=== PATIENT | male | born 1945 | race Caucasian/White ===

== ENCOUNTER 2017-12-31 20:07 | Inpatient (IN) | payer MEDICARE ==
[~2017-12-31] VITALS: Ht 170.2 cm; Wt 55.5 kg
[2017-12-31 20:40] VITALS: BP 156/76
[2017-12-31] MEDS ORDERED: Morphine Sulfate 4mg/ml Inj (IV/IM USE ONLY) IVP ONE (22:30)
[2017-12-31] MEDS ORDERED: KEPPRA500 M4 ORAL (23:22)
--- NOTE | 2017-12-31 23:49 | Emergency Room Report ---
History of Present Illness General Chief Complaint: Multiple Trauma/Fall Source: EMS Present Illness HPI 72-year-old male presents to ED for evaluation. Brought in by EMS status post fall from bed tonight. called 911. Patient points to his leg. Has dementia and history of brain cancer. Unable to characterize the pain. Patient appears confused. Unable to provide any additional history at this time. No other aggravating relieving factors. No other associated symptoms Allergies: Coded Allergies: No Known Allergies (Unverified , 12/31/17) Patient History Past Medical History: seizures, other - brain cancer Past Surgical History: none Pertinent Family History: none Social History: Denies: smoking, alcohol use, drug use Immunizations: UTD Reviewed Nursing Documentation: PMH: Agreed; PSxH: Agreed Nursing Documentation-PMH Hx Seizures: Yes Review of Systems All Other Systems: limited Physical Exam Vital Signs Date Time Temp Pulse Resp B/P (MAP) Pulse Ox O2 Delivery O2 Flow Rate FiO2 12/31/17 20:01 98.5 74 18 156/76 96 Room Air 98.4 Sp02 EP Interpretation: reviewed, normal General Appearance: cachetic, thin, other - dementia Head: normocephalic 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; left eye normal inspection, left eye PERRL, left eye EOMI ENT: normal ENT inspection Neck: normal inspection Respiratory: chest non-tender, lungs clear, normal breath sounds, speaking full sentences Cardiovascular #1: regular rate, rhythm, no edema Gastrointestinal: normal bowel sounds, non tender, soft, non-distended, no guarding, no rebound Rectal: deferred Genitourinary: no CVA tenderness Musculoskeletal: tender - R hip Neurologic: other - dementia Psychiatric: other - dementia Skin: normal inspection Lymphatic: normal inspection Medical Decision Making Diagnostic Impression: Primary Impression: Fall from bed Qualified Codes: W06.XXXA - Fall from bed, initial encounter Additional Impressions: Fracture of greater trochanter of right femur Qualified Codes: S72.114A - Nondisplaced fracture of greater trochanter of right femur, initial encounter for closed fracture H/O malignant neoplasm of brain ER Course Hospital Course 72 yo M presents to ED with fall from bed. R hip pain. h/o dementia Differential diagnoses include: fracture, dislocation, contusion Clinical course Patient placed on stretcher. After initial history and physical I ordered CT Head and CT pelvis, femur Xray CT head shows history of brain cancer with craniotomy but no acute process, right eye enucleation CT pelvis shows right greater trochanter fracture nondisplaced Labs drawn, IV fluids given Case discussed with Dr. David who agreed to consult on this case. Case discussed with Dr. Saldaña who agreed to accept the patient to his service for further care and support No family came with patient. later called. States that patient has history of brain cancer. Was treated previously at [facility]. States that he is currently taking Keppra 125 twice a day for seizures. States that she is the patient's decision-maker. Given the patient has dementia and is bedbound, she is likely not wanting surgery for the patient. States that she will discuss patient's case with the physician's in the morning i. I feel this is a highly complex case requiring extensive working including EKG/Rhythm strip, Xray/CT/US, Blood/urine lab work, repeat exams while in ED, and administration of strong opiates/narcotics for pain control, admission to hospital or close patient follow up. Diagnosis - fall from bed, fracture of greater trochanter of R femur, h/o malignant neoplasm of brain Admitted to floor in serious condition CT/MRI/US Diagnostic Results CT/MRI/US Diagnostic Results #1: Imaging Test Ordered: CT Head Impression h/o tumor. s/p left craniotomy. CT/MRI/US Diagnostic Results #2: Imaging Test Ordered: CT Pelvis Impression R nondisplaced greater trochanter fx Last Vital Signs Date Time Temp Pulse Resp B/P (MAP) Pulse Ox O2 Delivery O2 Flow Rate FiO2 12/31/17 22:43 98.4 12/31/17 20:40 18 156/76 96 Room Air 12/31/17 20:01 74 Status: improved Disposition: ADMITTED INPATIENT Condition: Serious Referrals: NOT CHOSEN IPA/,REFERRING (PCP) Gee Alcantara MD Dec 31, 2017 23:49
[2018-01-01 00:30] VITALS: BP 122/66
[2018-01-01] MEDS ORDERED: Zolpidem 5mg tab ORAL PRN (00:30)
[2018-01-01] MEDS ORDERED: Albuterol/Ipratropium 3ml neb HHN PRN (00:30)
[2018-01-01] MEDS ORDERED: Milk of Magnesia 30ml Ud ORAL PRN (00:30)
[2018-01-01] MEDS: D5 1/2NS 1,000 ML IV SCH ×2 (02:08→16:19)
[2018-01-01 04:00] VITALS: BP 125/63
[2018-01-01 07:24] LABS: BASOPHILS % (AUTO) 0.1 % (0.0-2.0); EOSINOPHILS % (AUTO) 0.1 % (0.0-3.0); HEMATOCRIT 41.5 % (42.0-52.0); HEMOGLOBIN 14.6 G/DL (14.2-18.0); LYMPHOCYTES % (AUTO) 17.9 % (20.0-45.0); MEAN CORPUSCULAR VOLUME 92 FL (80-99); MONOCYTES % (AUTO) 6.5 % (1.0-10.0); NEUTROPHILS % (AUTO) 75.3 % (45.0-75.0); PLATELET COUNT 137 K/UL (150-450); RED CELL DISTRIBUTION WIDTH 11.9 % (11.6-14.8); WHITE BLOOD COUNT 11.1 K/UL (4.8-10.8)
[2018-01-01 07:58] LABS: ALANINE AMINOTRANSFERASE 13 U/L (12-78); ALBUMIN 3.4 G/DL (3.4-5.0); ALBUMIN/GLOBULIN RATIO 1.2 (1.0-2.7); ALKALINE PHOSPHATASE 72 U/L (46-116); ANION GAP 10 mmol/L (5-15); ASPARTATE AMINO TRANSFERASE 9 U/L (15-37); BILIRUBIN,TOTAL 0.6 MG/DL (0.2-1.0); BLOOD UREA NITROGEN 13 mg/dL (7-18); CALCIUM 9.2 MG/DL (8.5-10.1); CARBON DIOXIDE 27 MMOL/L (21-32); CHLORIDE 104 MMOL/L (98-107); CREATININE 0.8 MG/DL (0.55-1.30); POTASSIUM 4.4 MMOL/L (3.5-5.1); SODIUM 141 MMOL/L (136-145)
[2018-01-01 08:00] VITALS: BP 119/61
[2018-01-01] MEDS ORDERED: Ketorolac 30mg Inj IM PRN (08:00)
[2018-01-01] MEDS: Docusate 100mg cap ORAL SCH ×2 (08:58→21:11)
--- NOTE | 2018-01-01 10:16 | Diagnostic Imaging Report ---
Indication: Headache. Head trauma Technique: Contiguous 5 mm thick transaxial imaging of the head obtained in a Siemens Sensation [address] scanner. Soft tissue and bone windows generated. Automatic Exposure Control was utilized. Total Dose length Product (DLP): 1439.[address] Dose Index Volume (CTDIvol): 70.38 mGy Comparison: none Findings: There is extensive low-attenuation of the periventricular and subcortical white matter bilaterally much worse within the left cerebrum. Patient has had previous left craniotomy, the reason for which is not known. There is distortion of the left lateral ventricle with the bulbous prominent appearing corpus callosum on the left side associated with slight the effacement of the superior margin of the left lateral ventricle probably best appreciated on coronal reconstruction. In general the sulci appear less prominent on the left than on the right. There is no pertinent history that is forthcoming. The findings based on the images provided without reference studies suggests the possibility of underlying tumor which may be residual or recurrent tumor. The low attenuation of white matter may be on the basis of vasogenic edema which is not excluded. Differential considerations include cerebritis and infection or previous XRT. Further elucidation of these findings with MRI with and without gadolinium is recommended as well as obtaining old records, previous examinations and workups that have undoubtedly been performed elsewhere. There is no acute hemorrhage identified. The basal cisterns remain normal. Generalized mild ventriculomegaly is present likely associated with atrophy. There is a displaced right ocular globe towards the medial aspect of the orbit. IMPRESSION: Diffuse abnormal low-attenuation involving cerebral white matter bilaterally, extensive in degree, acuity indeterminate. Possibility of vasogenic edema is not excluded and could be on the basis of recurrent or residual tumor or cerebritis, among other possibilities. Would also consider the possibility of previous XRT to the brain. Left craniotomy noted. Further evaluation with MRI with and without gadolinium is recommended as well as obtaining previous records, previous examinations for comparison and correlation. The CT scanner at [facility] is accredited by the [employer] and the scans are performed using dose optimization techniques as appropriate to a performed exam including Automatic Exposure control.
--- NOTE | 2018-01-01 10:21 | Diagnostic Imaging Report ---
Indication: Abdominal pain Technique: Continuous helical transaxial imaging of the pelvis was obtained from the iliac crest to the pubic symphysis. Coronal 2-D reformats were also obtained. Study obtained in a Siemens sensation [address] Intravenous non-ionic contrast was administered. Total Dose length Product (DLP): 1439.[address] Dose Index Volume (CTDIvol): 70.38 mGy Comparison: None Findings: There is evidence of an acute nondisplaced fracture involving the right greater trochanter. There is no evidence of fracture extending into the intertrochanteric region or the femoral neck within the joint capsule. The bones are osteopenic. No other fractures are identified. There is partial fusion of the sacroiliac joints and moderate degenerative changes of the visualized lower lumbar spine. Aortoiliac calcifications are moderate. There is moderate distention of the rectum due to feces. The rectal wall is also prominent and thickened. Stones are noted layering in the dependent portion of the urinary bladder lumen. There is a small right inguinal hernia containing fluid and fat. IMPRESSION: Acute nondisplaced fracture of the right greater trochanter. Fecal impaction with rectal wall thickening suggestive of proctitis. Bladder stones. Atherosclerotic disease. Osteoporosis, degenerative changes of the lower lumbar spine and arthrosis of both sacroiliac joints. The CT scanner at [facility] is accredited by the [employer] and the scans are performed using dose optimization techniques as appropriate to a performed exam including Automatic Exposure control.
[2018-01-01] MEDS: Enoxaparin 40mg Inj SUBQ SCH (10:23)
--- NOTE | 2018-01-01 11:04 | Diagnostic Imaging Report ---
Indication: Pain Thigh pain Findings: 2 views of the right femur were obtained. No definite acute fracture identified. Bones are moderately osteopenic. Alignment is normal. IMPRESSION: No acute fracture appreciated
--- NOTE | 2018-01-01 11:05 | Diagnostic Imaging Report ---
Indication: Pain Knee pain/trauma 3 views of the right knee were obtained. Findings: No acute fracture, malalignment, or joint effusion are identified. Joint space is relatively well-maintained. Bones show moderate to severe osteopenia. Impression: Negative for acute findings.
[2018-01-01 12:00] VITALS: BP 124/60
--- NOTE | 2018-01-01 14:39 | History & Physical ---
History and Physical History & Physicial General Chief Complaint: Multiple Trauma/Fall Source: EMS Present Illness HPI 72-year-old male presents to ED for evaluation. Brought in by EMS status post fall from bed tonight. called 911. Patient points to his leg. Has dementia and history of brain cancer. Unable to characterize the pain. Patient appears confused. Unable to provide any additional history at this time. No other aggravating relieving factors. No other associated symptoms Allergies: Coded Allergies: No Known Allergies (Unverified , 12/31/17) Patient History Past Medical History: seizures, other - brain cancer Past Surgical History: none Pertinent Family History: none Social History: Denies: smoking, alcohol use, drug use Immunizations: UTD Reviewed Nursing Documentation: PMH: Agreed; PSxH: Agreed Nursing Documentation-PMH Hx Seizures: Yes Review of Systems All Other Systems: limited Physical Exam Vital Signs Date Time Temp Pulse Resp B/P (MAP) Pulse Ox O2 Delivery O2 Flow Rate FiO2 12/31/17 20:01 98.5 74 18 156/76 96 Room Air 98.4 Sp02 EP Interpretation: reviewed, normal General Appearance: cachetic, thin, other - dementia Head: normocephalic 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; left eye normal inspection, left eye PERRL, left eye EOMI ENT: normal ENT inspection Neck: normal inspection Respiratory: chest non-tender, lungs clear, normal breath sounds, speaking full sentences Cardiovascular #1: regular rate, rhythm, no edema Gastrointestinal: normal bowel sounds, non tender, soft, non-distended, no guarding, no rebound Rectal: deferred Genitourinary: no CVA tenderness Musculoskeletal: tender - R hip Neurologic: other - dementia Psychiatric: other - dementia Skin: normal inspection Lymphatic: normal inspection Medical Decision Making Diagnostic Impression: Primary Impression: Fall from bed Qualified Codes: W06.XXXA - Fall from bed, initial encounter Additional Impressions: Fracture of greater trochanter of right femur Qualified Codes: S72.114A - Nondisplaced fracture of greater trochanter of right femur, initial encounter for closed fracture H/O malignant neoplasm of brain A/P; 1- Right sided Troch fx 2- Declined cognition in context of Brain tumor and prior surgery 3- Decision making: reportedly be Plan: Dr David, already notified SW- to find the next keen's contact information Maribell Saldaña MD Jan 01, 2018 14:39
--- NOTE | 2018-01-01 14:43 | General Progress Note ---
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 External Rotation of right hip Neurologic: other - dementia Psychiatric: other - dementia Skin: normal inspection Lymphatic: normal inspection Medical Decision Making Diagnostic Impression: Primary Impression: Fall from bed Qualified Codes: W06.XXXA - Fall from bed, initial encounter Additional Impressions: Fracture of greater trochanter of right femur Qualified Codes: S72.114A - Nondisplaced fracture of greater trochanter of right femur, initial encounter for closed fracture H/O malignant neoplasm of brain A/P; 1- Right sided Troch fx 2- Declined cognition in context of Brain tumor and prior surgery 3- Decision making: reportedly be Plan: Dr David, already notified SW- to find the next keen's contact information Subjective Allergies: Coded Allergies: No Known Allergies (Unverified , 12/31/17) Objective Last 24 Hour Vital Signs Date Time Temp Pulse Resp B/P (MAP) Pulse Ox O2 Delivery O2 Flow Rate FiO2 01/01/18 12:00 98.4 66 20 124/60 (81) 96 98.4 01/01/18 09:00 Room Air 01/01/18 08:00 97.9 70 20 119/61 (80) 97 97.9 01/01/18 04:00 97.5 68 18 125/63 (83) 97 97.5 01/01/18 01:12 Room Air 01/01/18 00:30 97.8 77 19 122/66 (84) 100 97.8 01/01/18 00:07 98.4 83 18 156/76 96 Room Air 98.4 12/31/17 22:43 98.4 12/31/17 20:40 98.4 18 156/76 96 Room Air 98.4 12/31/17 20:01 98.5 74 18 156/76 96 Room Air 98.4 Intake and Output 12/31/17 01/01/18 19:00 07:00 Intake Total 400 ml Balance 400 ml Intake Oral 100 ml IV Total 300 ml # Voids 1 Laboratory Tests 01/01/18 06:15: White Blood Count 11.1H, Red Blood Count 4.50L, Hemoglobin 14.6, Hematocrit 41.5L, Mean Corpuscular Volume 92, Mean Corpuscular Hemoglobin 32.4H, Mean Corpuscular Hemoglobin Concent 35.1, Red Cell Distribution Width 11.9, Platelet Count 137L, Mean Platelet Volume 5.9L, Neutrophils (%) (Auto) 75.3H, Lymphocytes (%) (Auto) 17.9L, Monocytes (%) (Auto) 6.5, Eosinophils (%) (Auto) 0.1, Basophils (%) (Auto) 0.1, Prothrombin Time 11.0, Prothromb Time International Ratio 1.0, Activated Partial Thromboplast Time 29, Sodium Level 141, Potassium Level 4.4, Chloride Level 104, Carbon Dioxide Level 27, Anion Gap 10, Blood Urea Nitrogen 13, Creatinine 0.8, Estimat Glomerular Filtration Rate , Glucose Level 116H, Calcium Level 9.2, Total Bilirubin 0.6, Aspartate Amino Transf (AST/SGOT) 9L, Alanine Aminotransferase (ALT/SGPT) 13, Alkaline Phosphatase 72, Total Protein 6.2L, Albumin 3.4, Globulin 2.8, Albumin/Globulin Ratio 1.2, Thyroid Stimulating Hormone (TSH) 1.529, Levetiracetam (Keppra) Level [Pending] Height (Feet): 5 Height (Inches): 7.00 Weight (Pounds): 117 Maribell Saldaña MD Jan 01, 2018 14:43
[2018-01-01 16:00] VITALS: BP 128/63
[2018-01-01 20:00] VITALS: BP 101/82
--- NOTE | 2018-01-01 20:15 | Consultation ---
DATE OF CONSULTATION: 01/01/2018 ORTHOPEDIC CONSULTATION CONSULTING PHYSICIAN: Georgi David M.D. REQUESTING PHYSICIAN: Maribell Saldaña M.D. DIAGNOSIS: Right greater trochanteric nondisplaced proximal femur fracture. HISTORY OF PRESENT ILLNESS: The patient is a 72-year-old gentleman, who was brought to the emergency department after falling from bed. Family member called 911. He has a history of dementia and brain cancer. He has diffuse complaints of pain about the right hip, though he has some difficulty verbalizing. Workup in the emergency department revealed nondisplaced right greater trochanteric fracture with no extension into the intertrochanteric region. There is no evidence of femoral neck fracture. PAST MEDICAL HISTORY: Significant for seizures, brain cancer, and has no known drug allergies. He has , who is his medical proxy. PHYSICAL EXAMINATION: He is well-appearing and comfortable in bed. There is a bandage over the right eye. He has some aphasia and difficulty communicating, although simple questions he seems able to answer. With log rolling of the right lower extremity, he has complaints of diffuse right groin pain. He is not able to follow instructions easily and not able to do a straight leg raise. Distal neurovascular examination is grossly intact. The leg is somewhat cachectic in appearance. RADIOGRAPHS: AP radiographs of pelvis and right hip along with CT scan reveal nondisplaced greater trochanteric hip fracture with no extension into the joint or into the intertrochanteric region. IMPRESSION AND PLAN: The patient sustained a greater trochanteric hip fracture with no displacement. No operative intervention was recommended. Abduction precautions are his only limitation. He may be weightbearing as tolerated and work with therapy as he is able to do so. He is welcome to follow up as an outpatient. Again, no surgical intervention is warranted at this time. Thank you for the opportunity to consult. Georgi David M.D. DR: BRAD JOB#: [id number] CC:
[2018-01-02] VITALS: BP 158/75
[2018-01-02 01:34] LABS: APPEARANCE,URINE CLOUDY; BILIRUBIN, URINE NEGATIVE (NEGATIVE); COLOR,URINE PALE YELLOW; GLUCOSE, URINE (UA) NEGATIVE (NEGATIVE); KETONES,URINE NEGATIVE (NEGATIVE); LEUKOCYTE ESTERASE ,URINE 3+ (NEGATIVE); NITRITE,URINE NEGATIVE (NEGATIVE); PH,URINE 6.5 (4.5-8.0); PROTEIN,URINE 1+ (NEGATIVE); UROBILINOGEN,URINE NORMAL MG/DL (0.0-1.0)
[2018-01-02 04:00] VITALS: BP 144/74
[2018-01-02] MEDS: D5 1/2NS 1,000 ML IV SCH ×2 (05:28→18:18)
[2018-01-02 06:39] LABS: BASOPHILS % (AUTO) 0.3 % (0.0-2.0); EOSINOPHILS % (AUTO) 0.9 % (0.0-3.0); HEMATOCRIT 41.1 % (42.0-52.0); HEMOGLOBIN 14.2 G/DL (14.2-18.0); LYMPHOCYTES % (AUTO) 14.8 % (20.0-45.0); MEAN CORPUSCULAR VOLUME 93 FL (80-99); MONOCYTES % (AUTO) 7.2 % (1.0-10.0); NEUTROPHILS % (AUTO) 76.8 % (45.0-75.0); PLATELET COUNT 139 K/UL (150-450); RED BLOOD COUNT 4.43 M/UL (4.70-6.10); RED CELL DISTRIBUTION WIDTH 12.1 % (11.6-14.8); WHITE BLOOD COUNT 9.3 K/UL (4.8-10.8)
[2018-01-02 07:18] LABS: ALANINE AMINOTRANSFERASE 17 U/L (12-78); ALBUMIN 3.3 G/DL (3.4-5.0); ALKALINE PHOSPHATASE 71 U/L (46-116); ANION GAP 9 mmol/L (5-15); ASPARTATE AMINO TRANSFERASE 12 U/L (15-37); BILIRUBIN,TOTAL 0.8 MG/DL (0.2-1.0); BLOOD UREA NITROGEN 12 mg/dL (7-18); CALCIUM 9.5 MG/DL (8.5-10.1); CARBON DIOXIDE 30 MMOL/L (21-32); CHLORIDE 103 MMOL/L (98-107); CHOLESTEROL 128 MG/DL (< 200); CREATININE 0.8 MG/DL (0.55-1.30); HDL CHOLESTEROL 55 MG/DL (40-60); SODIUM 142 MMOL/L (136-145); TRIGLYCERIDES 114 MG/DL (30-150)
[2018-01-02 08:00] VITALS: BP 135/56
[2018-01-02] MEDS: Docusate 100mg cap ORAL SCH ×2 (09:12→20:44)
[2018-01-02] MEDS: Enoxaparin 40mg Inj SUBQ SCH (09:14)
[2018-01-02] MEDS ORDERED: D5 1/2NS 1000ml IV ONE (09:28)
[2018-01-02 12:00] VITALS: BP 125/59
--- NOTE | 2018-01-02 12:22 | General Progress Note ---
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 External Rotation of right hip Neurologic: other - dementia Psychiatric: other - dementia Skin: normal inspection Lymphatic: normal inspection Medical Decision Making Diagnostic Impression: Primary Impression: Fall from bed Qualified Codes: W06.XXXA - Fall from bed, initial encounter Additional Impressions: Fracture of greater trochanter of right femur Qualified Codes: S72.114A - Nondisplaced fracture of greater trochanter of right femur, initial encounter for closed fracture H/O malignant neoplasm of brain A/P; 1- Right sided Troch fx 2- Declined cognition in context of Brain tumor and prior surgery 3- Decision making: reportedly by Plan: Dr Frankie carrizales reviewed current conservative management and symptomatic treatment SW- to find the next keen's contact information Subjective Allergies: Coded Allergies: No Known Allergies (Unverified , 12/31/17) Objective Last 24 Hour Vital Signs Date Time Temp Pulse Resp B/P (MAP) Pulse Ox O2 Delivery O2 Flow Rate FiO2 01/02/18 09:00 Room Air 01/02/18 08:00 98.7 84 20 135/56 (82) 99 98.7 01/02/18 04:00 97.7 78 18 144/74 (97) 98 97.7 01/02/18 00:00 98.0 91 18 158/75 (102) 97 98.0 01/01/18 21:00 Room Air 01/01/18 20:00 97.9 93 18 101/82 (88) 97 97.9 01/01/18 16:00 101.4 104 19 128/63 (84) 94 101.4 Intake and Output 01/01/18 01/02/18 19:00 07:00 Intake Total 1260 ml 945 ml Output Total 350 ml Balance 1260 ml 595 ml Intake Oral 360 ml 120 ml IV Total 900 ml 825 ml Output Urine Total 350 ml # Voids 2 Laboratory Tests 01/02/18 01:00: Urine Color Pale yellow, Urine Appearance Cloudy, Urine pH 6.5, Urine Specific [place] 1.015, Urine Protein 1+H, Urine Glucose (UA) Negative, Urine Ketones Negative, Urine Blood 2+H, Urine Nitrite Negative, Urine Bilirubin Negative, Urine Urobilinogen Normal, Urine Leukocyte Esterase 3+H, Urine RBC 5-10H, Urine WBC TntcH, Urine Squamous Epithelial Cells None, Urine Bacteria ManyH 01/02/18 05:15: White Blood Count 9.3, Red Blood Count 4.43L, Hemoglobin 14.2, Hematocrit 41.1L , Mean Corpuscular Volume 93, Mean Corpuscular Hemoglobin 32.1H, Mean Corpuscular Hemoglobin Concent 34.6, Red Cell Distribution Width 12.1, Platelet Count 139L, Mean Platelet Volume 6.3L, Neutrophils (%) (Auto) 76.8H, Lymphocytes (%) (Auto) 14.8L, Monocytes (%) (Auto) 7.2, Eosinophils (%) (Auto) 0.9, Basophils (%) (Auto) 0.3, Prothrombin Time 10.8, Prothromb Time International Ratio 1.0, Activated Partial Thromboplast Time 30, Sodium Level 142, Potassium Level 4.0, Chloride Level 103, Carbon Dioxide Level 30, Anion Gap 9, Blood Urea Nitrogen 12, Creatinine 0.8, Estimat Glomerular Filtration Rate , Glucose Level 111H, Hemoglobin A1c 5.5, Calcium Level 9.5, Magnesium Level 1.8, Total Bilirubin 0.8, Aspartate Amino Transf (AST/SGOT) 12L, Alanine Aminotransferase (ALT/SGPT) 17, Alkaline Phosphatase 71, Pro-B-Type Natriuretic Peptide 243H, Total Protein 6.7, Albumin 3.3L, Globulin 3.4, Albumin/Globulin Ratio 1.0, Triglycerides Level 114, Cholesterol Level 128, LDL Cholesterol 47, HDL Cholesterol 55, Cholesterol/HDL Ratio 2.3L Height (Feet): 5 Height (Inches): 7.00 Weight (Pounds): 122 Maribell Saldaña MD Jan 02, 2018 12:22
--- NOTE | 2018-01-02 14:25 | Infectious Diseases Prog Note ---
Assessment/Plan Problems: (1) UTI (urinary tract infection) Assessment & Plan: will start cefepime empirically pending urine culture (2) Sepsis Assessment & Plan: with fever and leukocytosis , will send blood culture and start vancomycin and cefepime empirically (3) Fever Assessment & Plan: source? UTI VS fracture , will send blood culture and start wide spectrum antibiotics pending cultures results (4) Fracture of greater trochanter of right femur Assessment & Plan: continue pain management and conservative treatment as per ortho Subjective Allergies: Coded Allergies: No Known Allergies (Unverified , 12/31/17) Objective Vital Signs Last 24 Hour Vital Signs Date Time Temp Pulse Resp B/P (MAP) Pulse Ox O2 Delivery O2 Flow Rate FiO2 01/02/18 12:00 98.7 70 20 125/59 (81) 99 98.7 01/02/18 09:00 Room Air 01/02/18 08:00 98.7 84 20 135/56 (82) 99 98.7 01/02/18 04:00 97.7 78 18 144/74 (97) 98 97.7 01/02/18 00:00 98.0 91 18 158/75 (102) 97 98.0 01/01/18 21:00 Room Air 01/01/18 20:00 97.9 93 18 101/82 (88) 97 97.9 01/01/18 16:00 101.4 104 19 128/63 (84) 94 101.4 Height (Feet): 5 Height (Inches): 7.00 Weight (Pounds): 122 Laboratory Tests Test 01/02/18 01:00 01/02/18 05:15 Urine Color Pale yellow Urine Appearance Cloudy Urine pH 6.5 (4.5-8.0) Urine Specific [place] 1.015 (1.005-1.035) Urine Protein 1+ (NEGATIVE) H Urine Glucose (UA) Negative (NEGATIVE) Urine Ketones Negative (NEGATIVE) Urine Blood 2+ (NEGATIVE) H Urine Nitrite Negative (NEGATIVE) Urine Bilirubin Negative (NEGATIVE) Urine Urobilinogen Normal MG/DL (0.0-1.0) Urine Leukocyte Esterase 3+ (NEGATIVE) H Urine RBC 5-10 /HPF (0 - 0) H Urine WBC Tntc /HPF (0 - 0) H Urine Squamous Epithelial Cells None /LPF (NONE/OCC) Urine Bacteria Many /HPF (NONE) H White Blood Count 9.3 K/UL (4.8-10.8) Red Blood Count 4.43 M/UL (4.70-6.10) L Hemoglobin 14.2 G/DL (14.2-18.0) Hematocrit 41.1 % (42.0-52.0) L Mean Corpuscular Volume 93 FL (80-99) Mean Corpuscular Hemoglobin 32.1 PG (27.0-31.0) H Mean Corpuscular Hemoglobin Concent 34.6 G/DL (32.0-36.0) Red Cell Distribution Width 12.1 % (11.6-14.8) Platelet Count 139 K/UL (150-450) L Mean Platelet Volume 6.3 FL (6.5-10.1) L Neutrophils (%) (Auto) 76.8 % (45.0-75.0) H Lymphocytes (%) (Auto) 14.8 % (20.0-45.0) L Monocytes (%) (Auto) 7.2 % (1.0-10.0) Eosinophils (%) (Auto) 0.9 % (0.0-3.0) Basophils (%) (Auto) 0.3 % (0.0-2.0) Prothrombin Time 10.8 SEC (9.30-11.50) Prothromb Time International Ratio 1.0 (0.9-1.1) Activated Partial Thromboplast Time 30 SEC (23-33) Sodium Level 142 MMOL/L (136-145) Potassium Level 4.0 MMOL/L (3.5-5.1) Chloride Level 103 MMOL/L (98-107) Carbon Dioxide Level 30 MMOL/L (21-32) Anion Gap 9 mmol/L (5-15) Blood Urea Nitrogen 12 mg/dL (7-18) Creatinine 0.8 MG/DL (0.55-1.30) Estimat Glomerular Filtration Rate mL/min (>60) Glucose Level 111 MG/DL (74-106) H Hemoglobin A1c 5.5 % (4.3-6.0) Calcium Level 9.5 MG/DL (8.5-10.1) Magnesium Level 1.8 MG/DL (1.8-2.4) Total Bilirubin 0.8 MG/DL (0.2-1.0) Aspartate Amino Transf (AST/SGOT) 12 U/L (15-37) L Alanine Aminotransferase (ALT/SGPT) 17 U/L (12-78) Alkaline Phosphatase 71 U/L (46-116) Pro-B-Type Natriuretic Peptide 243 pg/mL (0-125) H Total Protein 6.7 G/DL (6.4-8.2) Albumin 3.3 G/DL (3.4-5.0) L Globulin 3.4 g/dL Albumin/Globulin Ratio 1.0 (1.0-2.7) Triglycerides Level 114 MG/DL (30-150) Cholesterol Level 128 MG/DL (< 200) LDL Cholesterol 47 mg/dL (<100) HDL Cholesterol 55 MG/DL (40-60) Cholesterol/HDL Ratio 2.3 (3.3-4.4) L Current Medications Medications (Trade) Dose Ordered Sig/Trisha Route PRN Reason Start Time Stop Time Status Last Admin Dose Admin Acetaminophen (Tylenol) 650 mg Q4H PRN ORAL Mild Pain (Pain Scale 1-3) 01/01/18 00:30 01/31/18 00:29 Albuterol/ Ipratropium (Albuterol/ Ipratropium) 3 ml [id number] PRN HHN Shortness of Breath 01/01/18 00:30 01/06/18 00:29 Dextrose (Dextrose 50%) 25 ml Q30M PRN IV Hypoglycemia 01/01/18 00:30 01/31/18 00:29 Dextrose (Dextrose 50%) 50 ml Q30M PRN IV Hypoglycemia 01/01/18 00:30 01/31/18 00:29 Dextrose/Sodium Chloride 1,000 ml @ 75 mls/hr [id number] IV 01/01/18 02:00 01/31/18 01:59 01/02/18 05:28 Docusate Sodium (Colace) 100 mg EVERY 12 HOURS ORAL 01/01/18 09:00 01/31/18 08:59 01/02/18 09:12 Enoxaparin Sodium (Lovenox) 40 mg Q24H SUBQ 01/01/18 09:00 01/31/18 08:59 01/02/18 09:14 Ketorolac Tromethamine (Toradol 30mg) 30 mg Q12H PRN IM Moderate Breakthru Pain (5-7) 01/01/18 08:00 01/06/18 07:59 Levetiracetam (Keppra) 500 mg Q12HR ORAL 01/01/18 09:00 01/31/18 08:59 01/02/18 09:12 Magnesium Hydroxide (Mom) 30 ml HSPRN PRN ORAL Constipation 01/01/18 00:30 01/31/18 00:29 Morphine Sulfate (Morphine Sulfate) 4 mg Q4H PRN IVP Severe Pain (Pain Scale 7-10) 01/01/18 08:00 01/08/18 07:59 Ondansetron HCl (Zofran) 4 mg Q6H PRN IVP Nausea & Vomiting 01/01/18 00:30 01/31/18 00:29 Pantoprazole (Protonix) 40 mg DAILY ORAL 01/01/18 09:00 01/31/18 08:59 01/02/18 09:13 Zolpidem Tartrate (Ambien) 5 mg HSPRN PRN ORAL Insomnia 01/01/18 00:30 01/08/18 00:29 Chelsey Drew M.D. Jan 02, 2018 14:25
[2018-01-02] MEDS: Cefepime HCl 2 GM in D5W 55 ML IVPB SCH ×2 (15:24→22:54)
[2018-01-02 16:00] VITALS: BP 130/76
[2018-01-02] MEDS: Vancomycin 1250mg/D5W 250ml IVPB SCH (16:19)
[2018-01-02 20:00] VITALS: BP 119/55
--- NOTE | 2018-01-02 20:15 | Consultation ---
DATE OF CONSULTATION: 01/02/2018 INFECTIOUS DISEASES CONSULTATION CONSULTING PHYSICIAN: Chelsey Drew M.D. REQUESTING PHYSICIAN: Maribell Saldaña M.D. REASON FOR CONSULTATION: Fever, urinary tract infection, possible sepsis. Recommendation for antibiotics treatment. HISTORY OF PRESENT ILLNESS: The patient is a 72-year-old male with past medical history significant for seizure, brain cancer brought into the emergency room at [facility] after he fell from bed. The patient sustained right hip pain with inability to get up or walk. He had extensive workup in the emergency room which revealed nondisplaced right greater trochanteric fracture with no evidence of femoral neck fracture so he was admitted to the hospital for further evaluation and possible surgical repair. The patient was spiking fever last night of 101.4. His urinalysis showed evidence of urinary tract infection. So, Infectious Diseases consultation was requested for antibiotics treatment and further management. As of note, the patient is poor historian, had difficulty verbalizing, could not provide any history at this point. History was mainly obtained from the medical record. REVIEW OF SYSTEMS: Unable to obtain, the patient is poor historian. PAST MEDICAL HISTORY: Significant for seizure disorder and brain cancer. ALLERGIES: He has no known drug allergy. MEDICATIONS: He is on Lovenox, Protonix, Colace, Keppra, morphine, albuterol with ipratropium, Tylenol, milk of magnesium, Zofran, Ambien, and dextrose. FAMILY HISTORY: Unable to obtain. SOCIAL HISTORY: The patient lives at home with family. No recent drugs, tobacco, or alcohol. PHYSICAL EXAMINATION: VITAL SIGN: Temperature now 98.7, pulse 70, respirations 20, blood pressure 125/59, saturation 99% on room air. Temperature yesterday was 101.4. GENERAL: Middle-aged male, lying in bed, and hard of hearing, cachectic, no acute distress. HEENT: Normocephalic and atraumatic. Pupils are not reactive to light due to old injury. Moist oral mucosa. NECK: Supple. No lymphadenopathy. CARDIOVASCULAR: Regular rate and rhythm. No murmur or gallop. LUNGS: Clear bilaterally. No wheezing or rhonchi. Normal breathing sounds. ABDOMEN: Soft, nontender, nondistended. Normal bowel sounds. No hepatosplenomegaly or ascites. EXTREMITIES: No edema or cyanosis. Right hip tenderness with decreased range of motion due to fracture, significant muscle atrophy. LABORATORY AND DIAGNOSTIC DATA: Showed white count of 9.3, hemoglobin of 14.2, platelet count of 139. BUN of 12 and creatinine of 0.8. Urinalysis showed +3 leukocyte esterase, wbc's too numerous to count, and many bacteria in the urine. Imaging, pelvic CT scan showed acute nondisplaced fracture of the right greater trochanter. Fecal impaction with rectal wall thickening suggestive of proctitis, bladder stones, atherosclerotic disease. Right knee x-ray is negative for any active finding. Head CT scan showed diffuse abnormal low attenuation involving cerebral white matter bilaterally extensive in degree, left craniotomy noted. Femur x-ray of the right side, no acute fracture appreciated. ASSESSMENT AND RECOMMENDATION: 1. Urinary tract infection. We will start cefepime empirically. Pending urine culture. 2. Sepsis with leukocytosis and fever. We will send blood culture and start vancomycin and cefepime empiric coverage. Pending culture results. 3. Fever, source unclear. Urinary tract infection versus fracture versus bacteremia. We will send blood culture and start wide-spectrum antibiotics. Pending culture results. 4. Fracture of the greater trochanter of the right femur. Continue pain management and conservative treatment as per Ortho. Thank you for the consult. ID will continue to follow. Chelsey Drew M.D. DR: Yamel JOB#: [id number] CC: LUCI
[2018-01-02] MEDS: Morphine Sulfate 4mg/ml Inj (IV/IM USE ONLY) IVP PRN (20:45)
[2018-01-03] VITALS: BP 94/53
[2018-01-03 04:00] VITALS: BP 106/54
[2018-01-03 08:00] VITALS: BP 114/55
[2018-01-03] MEDS: Cefepime HCl 2 GM in D5W 55 ML IVPB SCH ×3 (08:33→21:12)
[2018-01-03] MEDS: D5 1/2NS 1,000 ML IV SCH ×2 (08:34→21:12)
[2018-01-03] MEDS: Docusate 100mg cap ORAL SCH ×2 (08:34→21:11)
[2018-01-03] MEDS: Enoxaparin 40mg Inj SUBQ SCH (08:36)
--- NOTE | 2018-01-03 11:31 | Diagnostic Imaging Report ---
Indication: Cough Comparison: None A single view chest radiograph was obtained. Findings: There is mild left basal atelectasis suspected with a faint platelike density at the left lung base. Heart size is normal. Bones are osteopenic. IMPRESSION: Mild left basal atelectasis
[2018-01-03 12:00] VITALS: BP 123/65
[2018-01-03] MEDS: Morphine Sulfate 4mg/ml Inj (IV/IM USE ONLY) IVP PRN ×2 (14:52→23:14)
[2018-01-03 16:00] VITALS: BP 103/57
[2018-01-03] MEDS: Vancomycin 1250mg/D5W 250ml IVPB SCH (16:19)
--- NOTE | 2018-01-03 17:00 | Infectious Diseases Prog Note ---
Assessment/Plan Problems: (1) UTI (urinary tract infection) Assessment & Plan: due to gram negative rods , continue cefepime empirically pending urine culture (2) Sepsis Assessment & Plan: with fever and leukocytosis , due to the above , await blood culture and continue vancomycin and cefepime empirically (3) Fever Assessment & Plan: source? UTI VS fracture , await blood culture and continue wide spectrum antibiotics pending cultures results (4) Fracture of greater trochanter of right femur Assessment & Plan: continue pain management and conservative treatment as per ortho Subjective Constitutional: Reports: no symptoms HEENT: Reports: no symptoms Respiratory: Reports: no symptoms Breasts: Reports: no symptoms Cardiovascular: Reports: no symptoms Gastrointestinal/Abdominal: Reports: no symptoms Genitourinary: Reports: no symptoms Neurologic: Reports: no symptoms Psychiatric: Reports: no symptoms Skin: Reports: no symptoms Endocrine: Reports: no symptoms Hematologic: Reports: no symptoms Musculoskeletal: Reports: pain, stiffness Allergies: Coded Allergies: No Known Allergies (Unverified , 12/31/17) Objective Vital Signs Last 24 Hour Vital Signs Date Time Temp Pulse Resp B/P (MAP) Pulse Ox O2 Delivery O2 Flow Rate FiO2 01/03/18 15:22 98.8 01/03/18 12:00 98.8 70 18 123/65 (84) 99 01/03/18 09:00 Room Air 01/03/18 08:00 97.8 74 17 114/55 (74) 99 01/03/18 04:00 98.4 71 16 106/54 (71) 99 01/03/18 00:00 97.0 80 17 94/53 (67) 98 01/02/18 21:00 Room Air 01/02/18 20:00 85 18 Room Air 21 01/02/18 20:00 97.7 55 19 119/55 (76) 97 Height (Feet): 5 Height (Inches): 7.00 Weight (Pounds): 122 General Appearance: WD/WN, no acute distress HEENT: normocephalic, atraumatic, anicteric, mucous membranes moist, PERRL Respiratory/Chest: chest wall non-tender, lungs clear, normal breath sounds, no respiratory distress, no accessory muscle use Cardiovascular: normal peripheral pulses, normal rate, regular rhythm, no gallop/murmur, no JVD Abdomen: normal bowel sounds, soft, non tender, no organomegaly, non distended , no mass, no scars Genitourinary: normal external genitalia Extremities: no cyanosis, no clubbing Skin: no rash, no lesions, no ulcers Neurologic/Psychiatric: alert, responsive Musculoskeletal: atrophy, other - right hip pain with decreased range of motion Microbiology Date/Time Source Procedure Growth Status 01/02/18 01:00 Urine,Clean Catch Urine Culture - Preliminary Gram Negative Bacillus 1 Resulted Current Medications Medications (Trade) Dose Ordered Sig/Trisha Route PRN Reason Start Time Stop Time Status Last Admin Dose Admin Acetaminophen (Tylenol) 650 mg Q4H PRN ORAL Mild Pain (Pain Scale 1-3) 01/01/18 00:30 01/31/18 00:29 Albuterol/ Ipratropium (Albuterol/ Ipratropium) 3 ml [id number] PRN HHN Shortness of Breath 01/01/18 00:30 01/06/18 00:29 Cefepime HCl 2 gm/ Dextrose 55 ml @ 110 mls/hr EVERY 12 HOURS IVPB 01/02/18 15:30 01/09/18 15:29 01/03/18 16:31 Dextrose (Dextrose 50%) 25 ml Q30M PRN IV Hypoglycemia 01/01/18 00:30 01/31/18 00:29 Dextrose (Dextrose 50%) 50 ml Q30M PRN IV Hypoglycemia 01/01/18 00:30 01/31/18 00:29 Dextrose/Sodium Chloride 1,000 ml @ 75 mls/hr [id number] IV 01/01/18 02:00 01/31/18 01:59 01/03/18 08:34 Docusate Sodium (Colace) 100 mg EVERY 12 HOURS ORAL 01/01/18 09:00 01/31/18 08:59 01/03/18 08:34 Enoxaparin Sodium (Lovenox) 40 mg Q24H SUBQ 01/01/18 09:00 01/31/18 08:59 01/03/18 08:36 Ketorolac Tromethamine (Toradol 30mg) 30 mg Q12H PRN IM Moderate Breakthru Pain (5-7) 01/01/18 08:00 01/06/18 07:59 Levetiracetam (Keppra) 500 mg Q12HR ORAL 01/01/18 09:00 01/31/18 08:59 01/03/18 08:34 Magnesium Hydroxide (Mom) 30 ml HSPRN PRN ORAL Constipation 01/01/18 00:30 01/31/18 00:29 Morphine Sulfate (Morphine Sulfate) 4 mg Q4H PRN IVP Severe Pain (Pain Scale 7-10) 01/01/18 08:00 01/08/18 07:59 01/03/18 14:52 Ondansetron HCl (Zofran) 4 mg Q6H PRN IVP Nausea & Vomiting 01/01/18 00:30 01/31/18 00:29 Pantoprazole (Protonix) 40 mg DAILY ORAL 01/01/18 09:00 01/31/18 08:59 01/03/18 08:34 Vancomycin HCl (Vanco rx to dose) 1 ea DAILY PRN MISC Per rx protocol 01/02/18 14:30 02/01/18 14:29 Vancomycin HCl/ Dextrose 250 ml @ 166.667 mls/hr Q24H IVPB 01/02/18 16:00 01/07/18 15:59 01/02/18 16:19 Zolpidem Tartrate (Ambien) 5 mg HSPRN PRN ORAL Insomnia 01/01/18 00:30 01/08/18 00:29 Chelsey Drew M.D. Jan 03, 2018 17:00
--- NOTE | 2018-01-03 17:10 | General Progress Note ---
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 External Rotation of right hip Neurologic: other - dementia Psychiatric: other - dementia Skin: normal inspection Lymphatic: normal inspection Medical Decision Making Diagnostic Impression: Primary Impression: Fall from bed Qualified Codes: W06.XXXA - Fall from bed, initial encounter Additional Impressions: Fracture of greater trochanter of right femur Qualified Codes: S72.114A - Nondisplaced fracture of greater trochanter of right femur, initial encounter for closed fracture H/O malignant neoplasm of brain A/P; 1- Right sided Troch fx 2- Declined cognition in context of Brain tumor and prior surgery 3- Decision making: reportedly by Plan: Dr David note reviewed, no plan for surgery current conservative management and symptomatic treatment SW- to find the next keen's contact information Medically patient is appropriate for Hospice care Subjective Allergies: Coded Allergies: No Known Allergies (Unverified , 12/31/17) Objective Last 24 Hour Vital Signs Date Time Temp Pulse Resp B/P (MAP) Pulse Ox O2 Delivery O2 Flow Rate FiO2 01/03/18 16:00 98.2 81 19 103/57 (72) 97 01/03/18 15:22 98.8 01/03/18 12:00 98.8 70 18 123/65 (84) 99 01/03/18 09:00 Room Air 01/03/18 08:12 76 16 Room Air 21 01/03/18 08:00 97.8 74 17 114/55 (74) 99 01/03/18 04:00 98.4 71 16 106/54 (71) 99 01/03/18 00:00 97.0 80 17 94/53 (67) 98 01/02/18 21:00 Room Air 01/02/18 20:00 85 18 Room Air 21 01/02/18 20:00 97.7 55 19 119/55 (76) 97 Intake and Output 01/02/18 01/03/18 19:00 07:00 Intake Total 500 ml 1080 ml Balance 500 ml 1080 ml Intake Oral 500 ml 200 ml IV Total 880 ml # Voids 2 Height (Feet): 5 Height (Inches): 7.00 Weight (Pounds): 122 Maribell Saldaña MD Jan 03, 2018 17:10
[2018-01-03 20:00] VITALS: BP 130/83
[2018-01-04] VITALS: BP 122/62
[2018-01-04 04:00] VITALS: BP 131/72
[2018-01-04 08:07] VITALS: BP 129/70
[2018-01-04] MEDS: D5 1/2NS 1,000 ML IV SCH ×2 (10:10→23:25)
[2018-01-04] MEDS: Cefepime HCl 2 GM in D5W 55 ML IVPB SCH (10:39)
--- NOTE | 2018-01-04 10:55 | Diagnostic Imaging Report ---
Indication: Reason For Exam: FALL Technique: 3 views of the cervical spine Comparison: none Findings: Bony alignment is normal. No prevertebral soft tissue swelling. No acute fractures. No dislocations. Note that the cervicothoracic junction is not well-demonstrated on the lateral view nor is C7 Impression: Limited exam. No definite acute bony trauma
--- NOTE | 2018-01-04 11:23 | General Progress Note ---
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 External Rotation of right hip Neurologic: other - dementia Psychiatric: other - dementia Skin: normal inspection Lymphatic: normal inspection A/P: Primary Impression: Fall from bed Qualified Codes: W06.XXXA - Fall from bed, initial encounter Additional Impressions: Fracture of greater trochanter of right femur Qualified Codes: S72.114A - Nondisplaced fracture of greater trochanter of right femur, initial encounter for closed fracture H/O malignant neoplasm of brain UTI- HCA- Gram negative A/P; 1- Right sided Troch fx 2- Declined cognition in context of Brain tumor and prior surgery 3- Decision making: reportedly by 4- UTI- HCA- Gram negative Plan: Dr David note reviewed, no plan for surgery current conservative management and symptomatic treatment I called and left the for Medically patient is appropriate for Hospice care Subjective Allergies: Coded Allergies: No Known Allergies (Unverified , 12/31/17) Objective Last 24 Hour Vital Signs Date Time Temp Pulse Resp B/P (MAP) Pulse Ox O2 Delivery O2 Flow Rate FiO2 01/04/18 09:00 Room Air 01/04/18 08:15 74 18 Room Air 21 01/04/18 08:07 97.8 77 20 129/70 (89) 98 01/04/18 04:00 97.7 77 20 131/72 (91) 97 01/04/18 00:00 98.2 81 20 122/62 (82) 96 01/03/18 21:10 80 19 Room Air 21 01/03/18 21:00 Room Air 01/03/18 20:00 97.7 80 19 130/83 (99) 96 01/03/18 16:00 98.2 81 19 103/57 (72) 97 10/25/18 15:22 98.8 01/03/18 12:00 98.8 70 18 123/65 (84) 99 Intake and Output 01/03/18 01/04/18 18:59 06:59 Intake Total 1180.000 ml 955 ml Output Total 1000 ml 1700 ml Balance 180.000 ml -745 ml Intake Oral 425 ml IV Total 755.000 ml 955 ml Output Urine Total 1000 ml 1700 ml # Voids 1 1 Height (Feet): 5 Height (Inches): 7.00 Weight (Pounds): 122 Maribell Saldaña MD Jan 04, 2018 11:23
[2018-01-04 12:00] VITALS: BP 130/64
--- NOTE | 2018-01-04 15:03 | Infectious Diseases Prog Note ---
Assessment/Plan Problems: (1) UTI (urinary tract infection) Assessment & Plan: due to klebsiella pneumonia , will switch to oral keflex and treat for 7 days (2) Sepsis Assessment & Plan: with fever and leukocytosis , due to the above , improving , blood culture no growth so far , will switch to oral keflex to treat his UTI (3) Fever Assessment & Plan: source suspect UTI and fracture , improved, blood culture is negative so far , will switch antibiotics to oral keflex (4) Fracture of greater trochanter of right femur Assessment & Plan: continue pain management and conservative treatment as per ortho Subjective Constitutional: Reports: no symptoms HEENT: Reports: no symptoms Respiratory: Reports: no symptoms Breasts: Reports: no symptoms Cardiovascular: Reports: no symptoms Gastrointestinal/Abdominal: Reports: no symptoms Genitourinary: Reports: no symptoms Neurologic: Reports: no symptoms Psychiatric: Reports: no symptoms Skin: Reports: no symptoms Endocrine: Reports: no symptoms Hematologic: Reports: no symptoms Musculoskeletal: Reports: pain, stiffness, other - right hip Allergies: Coded Allergies: No Known Allergies (Unverified , 12/31/17) Objective Vital Signs Last 24 Hour Vital Signs Date Time Temp Pulse Resp B/P (MAP) Pulse Ox O2 Delivery O2 Flow Rate FiO2 01/04/18 12:00 97.9 81 18 130/64 (86) 97 01/04/18 09:00 Room Air 01/04/18 08:15 74 18 Room Air 21 01/04/18 08:07 97.8 77 20 129/70 (89) 98 01/04/18 04:00 97.7 77 20 131/72 (91) 97 01/04/18 00:00 98.2 81 20 122/62 (82) 96 01/03/18 21:10 80 19 Room Air 21 01/03/18 21:00 Room Air 01/03/18 20:00 97.7 80 19 130/83 (99) 96 01/03/18 16:00 98.2 81 19 103/57 (72) 97 01/03/18 15:22 98.8 Height (Feet): 5 Height (Inches): 7.00 Weight (Pounds): 122 General Appearance: WD/WN, no acute distress, cachetic HEENT: normocephalic, atraumatic, anicteric, mucous membranes moist, supple, no JVD Respiratory/Chest: chest wall non-tender, lungs clear, normal breath sounds, no respiratory distress, no accessory muscle use Breasts: no masses Cardiovascular: normal peripheral pulses, normal rate, regular rhythm, no gallop/murmur, no JVD Abdomen: normal bowel sounds, soft, non tender, no organomegaly, non distended , no mass, no scars Genitourinary: normal external genitalia Extremities: no cyanosis, no clubbing Skin: no rash, no lesions, no ulcers Neurologic/Psychiatric: alert, responsive Lymphatic: no neck adenopathy, no groin adenopathy Musculoskeletal: normal muscle bulk, no effusion Microbiology Date/Time Source Procedure Growth Status 01/02/18 14:50 Blood Blood Culture - Preliminary NO GROWTH AFTER 24 HOURS Resulted 01/02/18 14:35 Blood Blood Culture - Preliminary NO GROWTH AFTER 24 HOURS Resulted 01/02/18 01:00 Urine,Clean Catch Urine Culture - Final Klebsiella Pneumoniae Complete Current Medications Medications (Trade) Dose Ordered Sig/Trisha Route PRN Reason Start Time Stop Time Status Last Admin Dose Admin Acetaminophen (Tylenol) 650 mg Q4H PRN ORAL Mild Pain (Pain Scale 1-3) 01/01/18 00:30 01/31/18 00:29 Albuterol/ Ipratropium (Albuterol/ Ipratropium) 3 ml [id number] PRN HHN Shortness of Breath 01/01/18 00:30 01/06/18 00:29 Cefepime HCl 2 gm/ Dextrose 55 ml @ 110 mls/hr EVERY 12 HOURS IVPB 01/02/18 15:30 01/09/18 15:29 01/04/18 10:39 Dextrose (Dextrose 50%) 25 ml Q30M PRN IV Hypoglycemia 01/01/18 00:30 01/31/18 00:29 Dextrose (Dextrose 50%) 50 ml Q30M PRN IV Hypoglycemia 01/01/18 00:30 01/31/18 00:29 Dextrose/Sodium Chloride 1,000 ml @ 75 mls/hr [id number] IV 01/01/18 02:00 01/31/18 01:59 01/04/18 10:10 Ketorolac Tromethamine (Toradol 30mg) 30 mg Q12H PRN IM Moderate Breakthru Pain (5-7) 01/01/18 08:00 01/06/18 07:59 Levetiracetam (Keppra) 250 mg Q12HR ORAL 01/04/18 09:00 01/31/18 08:59 01/04/18 10:10 Magnesium Hydroxide (Mom) 30 ml HSPRN PRN ORAL Constipation 01/01/18 00:30 01/31/18 00:29 Morphine Sulfate (Morphine Sulfate) 4 mg Q4H PRN IVP Severe Pain (Pain Scale 7-10) 01/01/18 08:00 01/08/18 07:59 01/03/18 23:14 Ondansetron HCl (Zofran) 4 mg Q6H PRN IVP Nausea & Vomiting 01/01/18 00:30 01/31/18 00:29 Vancomycin HCl (Vanco rx to dose) 1 ea DAILY PRN MISC Per rx protocol 01/02/18 14:30 02/01/18 14:29 Vancomycin HCl/ Dextrose 250 ml @ 166.667 mls/hr Q24H IVPB 01/02/18 16:00 01/07/18 15:59 01/03/18 16:19 Zolpidem Tartrate (Ambien) 5 mg HSPRN PRN ORAL Insomnia 01/01/18 00:30 01/08/18 00:29 Chelsey Drew M.D. Jan 04, 2018 15:03
[2018-01-04 16:00] VITALS: BP 123/58
[2018-01-04] MEDS: Cephalexin 500mg cap ORAL SCH ×2 (18:07→21:42)
[2018-01-04] MEDS: Morphine Sulfate 4mg/ml Inj (IV/IM USE ONLY) IVP PRN (18:18)
[2018-01-04 20:00] VITALS: BP 135/73
[2018-01-05] VITALS: BP 136/68
[2018-01-05] MEDS: Morphine Sulfate 4mg/ml Inj (IV/IM USE ONLY) IVP PRN ×3 (00:42→16:26)
[2018-01-05 04:00] VITALS: BP 111/59
[2018-01-05 08:00] VITALS: BP 129/59
[2018-01-05] MEDS: Cephalexin 500mg cap ORAL SCH ×4 (08:41→21:40)
[2018-01-05 12:00] VITALS: BP 139/64
--- NOTE | 2018-01-05 13:12 | General Progress Note ---
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 External Rotation of right hip Neurologic: other - dementia Psychiatric: other - dementia Skin: normal inspection Lymphatic: normal inspection A/P: Primary Impression: Fall from bed Qualified Codes: W06.XXXA - Fall from bed, initial encounter Additional Impressions: Fracture of greater trochanter of right femur Qualified Codes: S72.114A - Nondisplaced fracture of greater trochanter of right femur, initial encounter for closed fracture H/O malignant neoplasm of brain UTI- HCA- Gram negative A/P; 1- Right sided Troch fx 2- Declined cognition in context of Brain tumor and prior surgery 3- Decision making: reportedly by 4- UTI- HCA- Gram negative Plan: Dr David note reviewed, no plan for surgery current conservative management and symptomatic treatment I called and left the for CM notified me that requested SNIF placement . ok to transfer , once placement is confirmed Subjective Allergies: Coded Allergies: No Known Allergies (Unverified , 12/31/17) Objective Last 24 Hour Vital Signs Date Time Temp Pulse Resp B/P (MAP) Pulse Ox O2 Delivery O2 Flow Rate FiO2 01/05/18 12:00 98.1 84 20 139/64 (89) 97 01/05/18 09:00 Room Air 01/05/18 08:00 97.5 72 20 129/59 (82) 97 01/05/18 07:29 72 20 Room Air 21 01/05/18 04:00 98.6 70 20 111/59 (76) 97 01/05/18 00:00 99.5 82 18 136/68 (90) 97 01/04/18 21:00 Room Air 01/04/18 20:00 98.7 87 18 135/73 (93) 99 01/04/18 19:05 69 20 Room Air 21 01/04/18 16:00 99.6 75 18 123/58 (79) 99 Intake and Output 01/04/18 01/05/18 18:59 06:59 Intake Total 705 ml 825 ml Output Total 1300 ml 1200 ml Balance -595 ml -375 ml Intake Oral 125 ml IV Total 580 ml 825 ml Output Urine Total 1300 ml 1200 ml Height (Feet): 5 Height (Inches): 7.00 Weight (Pounds): 122 Maribell Saldaña MD Jan 05, 2018 13:12
[2018-01-05] MEDS: D5 1/2NS 1,000 ML IV SCH (13:23)
--- NOTE | 2018-01-05 14:38 | Infectious Diseases Prog Note ---
Assessment/Plan Problems: (1) UTI (urinary tract infection) Assessment & Plan: due to klebsiella pneumonia , continue oral keflex for 7 days total . EOT 01/11/18 (2) Sepsis Assessment & Plan: with fever and leukocytosis , due to the above , improving , blood culture no growth so far , will switch to oral keflex to treat his UTI (3) Fever Assessment & Plan: source suspect UTI and fracture , improved, blood culture is negative so far , will switch antibiotics to oral keflex (4) Fracture of greater trochanter of right femur Assessment & Plan: continue pain management and conservative treatment as per ortho Subjective Constitutional: Reports: no symptoms HEENT: Reports: no symptoms Respiratory: Reports: no symptoms Breasts: Reports: no symptoms Cardiovascular: Reports: no symptoms Gastrointestinal/Abdominal: Reports: no symptoms Genitourinary: Reports: no symptoms Neurologic: Reports: no symptoms Psychiatric: Reports: no symptoms Skin: Reports: no symptoms Endocrine: Reports: no symptoms Hematologic: Reports: no symptoms Musculoskeletal: Reports: no symptoms Allergies: Coded Allergies: No Known Allergies (Unverified , 12/31/17) Objective Vital Signs Last 24 Hour Vital Signs Date Time Temp Pulse Resp B/P (MAP) Pulse Ox O2 Delivery O2 Flow Rate FiO2 01/05/18 12:00 98.1 84 20 139/64 (89) 97 01/05/18 09:00 Room Air 01/05/18 08:00 97.5 72 20 129/59 (82) 97 01/05/18 07:29 72 20 Room Air 21 01/05/18 04:00 98.6 70 20 111/59 (76) 97 01/05/18 00:00 99.5 82 18 136/68 (90) 97 01/04/18 21:00 Room Air 01/04/18 20:00 98.7 87 18 135/73 (93) 99 01/04/18 19:05 69 20 Room Air 21 01/04/18 16:00 99.6 75 18 123/58 (79) 99 Height (Feet): 5 Height (Inches): 7.00 Weight (Pounds): 122 General Appearance: WD/WN, no acute distress, cachetic HEENT: normocephalic, atraumatic, anicteric, mucous membranes moist, PERRL Respiratory/Chest: chest wall non-tender, lungs clear, normal breath sounds, no respiratory distress, no accessory muscle use Cardiovascular: normal peripheral pulses, normal rate, regular rhythm, no gallop/murmur, no JVD Abdomen: normal bowel sounds, soft, non tender, no organomegaly, non distended , no mass, no scars Genitourinary: normal external genitalia Extremities: no cyanosis, no clubbing Skin: no rash, no lesions Neurologic/Psychiatric: alert, oriented x 3, responsive Lymphatic: no neck adenopathy, no groin adenopathy Musculoskeletal: normal muscle bulk, no effusion Microbiology Date/Time Source Procedure Growth Status 01/02/18 14:50 Blood Blood Culture - Preliminary NO GROWTH AFTER 48 HOURS Resulted Current Medications Medications (Trade) Dose Ordered Sig/Trisha Route PRN Reason Start Time Stop Time Status Last Admin Dose Admin Acetaminophen (Tylenol) 650 mg Q4H PRN ORAL Mild Pain (Pain Scale 1-3) 01/01/18 00:30 01/31/18 00:29 Albuterol/ Ipratropium (Albuterol/ Ipratropium) 3 ml [id number] PRN HHN Shortness of Breath 01/01/18 00:30 01/06/18 00:29 Cephalexin (Keflex) 500 mg FOUR TIMES A DAY ORAL 01/04/18 18:00 01/08/18 17:59 01/05/18 13:17 Dextrose (Dextrose 50%) 25 ml Q30M PRN IV Hypoglycemia 01/01/18 00:30 01/31/18 00:29 Dextrose (Dextrose 50%) 50 ml Q30M PRN IV Hypoglycemia 01/01/18 00:30 01/31/18 00:29 Dextrose/Sodium Chloride 1,000 ml @ 75 mls/hr [id number] IV 01/01/18 02:00 01/31/18 01:59 01/05/18 13:23 Ketorolac Tromethamine (Toradol 30mg) 30 mg Q12H PRN IM Moderate Breakthru Pain (5-7) 01/01/18 08:00 01/06/18 07:59 Levetiracetam (Keppra) 250 mg Q12HR ORAL 01/04/18 09:00 01/31/18 08:59 01/05/18 08:41 Magnesium Hydroxide (Mom) 30 ml HSPRN PRN ORAL Constipation 01/01/18 00:30 11/22/18 00:29 Morphine Sulfate (Morphine Sulfate) 4 mg Q4H PRN IVP Severe Pain (Pain Scale 7-10) 01/01/18 08:00 01/08/18 07:59 01/05/18 09:08 Ondansetron HCl (Zofran) 4 mg Q6H PRN IVP Nausea & Vomiting 01/01/18 00:30 01/31/18 00:29 Zolpidem Tartrate (Ambien) 5 mg HSPRN PRN ORAL Insomnia 01/01/18 00:30 01/08/18 00:29 Chelsey Drew M.D. Jan 05, 2018 14:38
[2018-01-05] MEDS ORDERED: D5 1/2NS 1000ml IV ONE (15:04)
[2018-01-05] MEDS ORDERED: ACETAMINOPHEN325 M1 ORAL (15:41)
[2018-01-05] MEDS ORDERED: CEPHALEXIN500 M1 ORAL (15:42)
[2018-01-05] MEDS ORDERED: KEPPRA500 M4 ORAL (15:43)
[2018-01-05] MEDS ORDERED: MILK OF MA400 MG/51 ORAL ×2 (15:44→15:46)
[2018-01-05] MEDS ORDERED: DUONEB 0.5-3(2.53 ML HHN (15:47)
[2018-01-05] MEDS ORDERED: AMBIEN5 MG ORAL (15:47)
[2018-01-05 16:00] VITALS: BP 131/62
[2018-01-05 20:00] VITALS: BP 151/70
[2018-01-06] VITALS: BP 137/71
[2018-01-06] MEDS: D5 1/2NS 1,000 ML IV SCH ×2 (02:20→13:21)
[2018-01-06 04:00] VITALS: BP 128/67
[2018-01-06 08:00] VITALS: BP 125/56
[2018-01-06] MEDS ORDERED: D5 1/2NS 1000ml IV ONE (09:10)
[2018-01-06] MEDS: Cephalexin 500mg cap ORAL SCH ×4 (09:19→20:34)
--- NOTE | 2018-01-06 10:01 | General Progress Note ---
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 External Rotation of right hip Neurologic: other - dementia Psychiatric: other - dementia Skin: normal inspection Lymphatic: normal inspection A/P: Primary Impression: Fall from bed Qualified Codes: W06.XXXA - Fall from bed, initial encounter Additional Impressions: Fracture of greater trochanter of right femur Qualified Codes: S72.114A - Nondisplaced fracture of greater trochanter of right femur, initial encounter for closed fracture H/O malignant neoplasm of brain UTI- HCA- Gram negative A/P; 1- Right sided Troch fx 2- Declined cognition in context of Brain tumor and prior surgery 3- Decision making: reportedly by 4- UTI- HCA- Gram negative Plan: Dr David note reviewed, no plan for surgery current conservative management and symptomatic treatment I called and left for on two occasion. Phone is not set to receive any voice message CM notified me that requested SNIF placement . ok to transfer , once placement is confirmed I discussed the care with over the phone on 01/06/18, she requesting rehab to full extent. She disagrees with SNIF placement will consult PT/OT Subjective Allergies: Coded Allergies: No Known Allergies (Unverified , 12/31/17) Objective Last 24 Hour Vital Signs Date Time Temp Pulse Resp B/P (MAP) Pulse Ox O2 Delivery O2 Flow Rate FiO2 01/06/18 08:00 97.9 71 18 125/56 (79) 95 01/06/18 07:50 Room Air 01/06/18 07:43 78 16 Room Air 21 01/06/18 04:00 98.4 75 19 128/67 (87) 96 01/06/18 00:00 98.0 81 19 137/71 (93) 94 01/05/18 21:00 Room Air 01/05/18 20:24 81 20 Room Air 21 01/05/18 20:00 98.5 87 20 151/70 (97) 94 01/05/18 16:00 98.6 85 20 131/62 (85) 97 01/05/18 12:00 98.1 84 20 139/64 (89) 97 Intake and Output 01/05/18 01/06/18 19:00 07:00 Intake Total 480 ml 825 ml Output Total 1200 ml Balance -720 ml 825 ml Intake Oral 480 ml IV Total 825 ml Output Urine Total 1200 ml # Voids 2 Height (Feet): 5 Height (Inches): 7.00 Weight (Pounds): 122 Maribell Saldaña MD Jan 06, 2018 10:01
[2018-01-06 11:23] LABS: BASOPHILS % (AUTO) 0.4 % (0.0-2.0); EOSINOPHILS % (AUTO) 1.2 % (0.0-3.0); HEMATOCRIT 40.8 % (42.0-52.0); HEMOGLOBIN 14.2 G/DL (14.2-18.0); LYMPHOCYTES % (AUTO) 20.8 % (20.0-45.0); MEAN CORPUSCULAR VOLUME 92 FL (80-99); MONOCYTES % (AUTO) 7.3 % (1.0-10.0); NEUTROPHILS % (AUTO) 70.2 % (45.0-75.0); PLATELET COUNT 156 K/UL (150-450); RED BLOOD COUNT 4.44 M/UL (4.70-6.10); RED CELL DISTRIBUTION WIDTH 11.6 % (11.6-14.8); WHITE BLOOD COUNT 8.5 K/UL (4.8-10.8)
[2018-01-06 12:00] VITALS: BP 121/74
--- NOTE | 2018-01-06 13:54 | Infectious Diseases Prog Note ---
Assessment/Plan Problems: (1) UTI (urinary tract infection) Assessment & Plan: due to klebsiella pneumonia , continue oral keflex for 7 days total . EOT 01/11/18 (2) Sepsis Assessment & Plan: with fever and leukocytosis , due to the above , improving , blood culture no growth so far , will switch to oral keflex to treat his UTI (3) Fever Assessment & Plan: source suspect UTI and fracture , improved, blood culture is negative so far , continue oral keflex (4) Fracture of greater trochanter of right femur Assessment & Plan: continue pain management and conservative treatment as per ortho Subjective Constitutional: Reports: no symptoms HEENT: Reports: no symptoms Respiratory: Reports: no symptoms Breasts: Reports: no symptoms Cardiovascular: Reports: no symptoms Gastrointestinal/Abdominal: Reports: no symptoms Genitourinary: Reports: no symptoms Neurologic: Reports: no symptoms Psychiatric: Reports: no symptoms Skin: Reports: no symptoms Endocrine: Reports: no symptoms Hematologic: Reports: no symptoms Musculoskeletal: Reports: no symptoms Allergies: Coded Allergies: No Known Allergies (Unverified , 12/31/17) Objective Vital Signs Last 24 Hour Vital Signs Date Time Temp Pulse Resp B/P (MAP) Pulse Ox O2 Delivery O2 Flow Rate FiO2 01/06/18 12:00 99.0 92 17 121/74 (90) 95 01/06/18 08:00 97.9 71 18 125/56 (79) 95 01/06/18 07:50 Room Air 01/06/18 07:43 78 16 Room Air 21 01/06/18 04:00 98.4 75 19 128/67 (87) 96 01/06/18 00:00 98.0 81 19 137/71 (93) 94 01/05/18 21:00 Room Air 01/05/18 20:24 81 20 Room Air 21 01/05/18 20:00 98.5 87 20 151/70 (97) 94 01/05/18 16:00 98.6 85 20 131/62 (85) 97 Height (Feet): 5 Height (Inches): 7.00 Weight (Pounds): 122 General Appearance: WD/WN, no acute distress HEENT: normocephalic, atraumatic, anicteric, mucous membranes moist, PERRL Respiratory/Chest: chest wall non-tender, normal breath sounds, no respiratory distress, no accessory muscle use, decreased breath sounds Cardiovascular: normal peripheral pulses, normal rate, regular rhythm, no gallop/murmur, no JVD Abdomen: normal bowel sounds, soft, non tender, no organomegaly, non distended , no mass, no scars Genitourinary: other - mild erythema Extremities: no cyanosis, no clubbing Skin: no rash, no lesions, no ulcers Neurologic/Psychiatric: alert, oriented x 3, responsive Lymphatic: no neck adenopathy, no groin adenopathy Musculoskeletal: normal muscle bulk, no effusion Laboratory Tests Test 01/06/18 11:00 White Blood Count 8.5 K/UL (4.8-10.8) Red Blood Count 4.44 M/UL (4.70-6.10) L Hemoglobin 14.2 G/DL (14.2-18.0) Hematocrit 40.8 % (42.0-52.0) L Mean Corpuscular Volume 92 FL (80-99) Mean Corpuscular Hemoglobin 31.9 PG (27.0-31.0) H Mean Corpuscular Hemoglobin Concent 34.7 G/DL (32.0-36.0) Red Cell Distribution Width 11.6 % (11.6-14.8) Platelet Count 156 K/UL (150-450) Mean Platelet Volume 6.6 FL (6.5-10.1) Neutrophils (%) (Auto) 70.2 % (45.0-75.0) Lymphocytes (%) (Auto) 20.8 % (20.0-45.0) Monocytes (%) (Auto) 7.3 % (1.0-10.0) Eosinophils (%) (Auto) 1.2 % (0.0-3.0) Basophils (%) (Auto) 0.4 % (0.0-2.0) Current Medications Medications (Trade) Dose Ordered Sig/Trisha Route PRN Reason Start Time Stop Time Status Last Admin Dose Admin Acetaminophen (Tylenol) 650 mg Q4H PRN ORAL Mild Pain (Pain Scale 1-3) 01/01/18 00:30 01/31/18 00:29 Cephalexin (Keflex) 500 mg FOUR TIMES A DAY ORAL 01/04/18 18:00 01/11/18 23:59 01/06/18 13:17 Dextrose (Dextrose 50%) 25 ml Q30M PRN IV Hypoglycemia 01/01/18 00:30 01/31/18 00:29 Dextrose (Dextrose 50%) 50 ml Q30M PRN IV Hypoglycemia 01/01/18 00:30 01/31/18 00:29 Dextrose/Sodium Chloride 1,000 ml @ 75 mls/hr [id number] IV 01/01/18 02:00 01/31/18 01:59 01/06/18 13:21 Levetiracetam (Keppra) 250 mg Q12HR ORAL 01/04/18 09:00 01/31/18 08:59 01/06/18 09:19 Magnesium Hydroxide (Mom) 30 ml HSPRN PRN ORAL Constipation 01/01/18 00:30 01/31/18 00:29 01/05/18 16:19 Morphine Sulfate (Morphine Sulfate) 4 mg Q4H PRN IVP Severe Pain (Pain Scale 7-10) 01/01/18 08:00 01/08/18 07:59 01/05/18 16:26 Ondansetron HCl (Zofran) 4 mg Q6H PRN IVP Nausea & Vomiting 01/01/18 00:30 01/31/18 00:29 01/05/18 21:04 Zolpidem Tartrate (Ambien) 5 mg HSPRN PRN ORAL Insomnia 01/01/18 00:30 01/08/18 00:29 Chelsey Drew M.D. Jan 06, 2018 13:54
[2018-01-06 16:00] VITALS: BP 125/76
[2018-01-06 20:00] VITALS: BP 115/57
[2018-01-07] VITALS: BP 114/60
[2018-01-07 04:00] VITALS: BP 134/67
[2018-01-07] MEDS: D5 1/2NS 1,000 ML IV SCH ×2 (04:47→18:21)
[2018-01-07 07:06] LABS: ALANINE AMINOTRANSFERASE 20 U/L (12-78); ALBUMIN 2.8 G/DL (3.4-5.0); ALBUMIN/GLOBULIN RATIO 0.8 (1.0-2.7); ALKALINE PHOSPHATASE 81 U/L (46-116); ANION GAP 3 mmol/L (5-15); ASPARTATE AMINO TRANSFERASE 14 U/L (15-37); BILIRUBIN,TOTAL 0.5 MG/DL (0.2-1.0); BLOOD UREA NITROGEN 9 mg/dL (7-18); CALCIUM 9.7 MG/DL (8.5-10.1); CARBON DIOXIDE 34 MMOL/L (21-32); CHLORIDE 104 MMOL/L (98-107); CREATININE 0.7 MG/DL (0.55-1.30); POTASSIUM 4.7 MMOL/L (3.5-5.1); SODIUM 141 MMOL/L (136-145)
[2018-01-07 08:08] VITALS: BP 144/70
[2018-01-07] MEDS: Cephalexin 500mg cap ORAL SCH ×4 (08:56→21:42)
[2018-01-07 11:57] VITALS: BP 128/53
[2018-01-07 16:00] VITALS: BP 141/79
--- NOTE | 2018-01-07 16:51 | Infectious Diseases Prog Note ---
Assessment/Plan Problems: (1) UTI (urinary tract infection) Assessment & Plan: due to klebsiella pneumonia , continue oral keflex for 7 days total . EOT 01/11/18 (2) Sepsis Assessment & Plan: with fever and leukocytosis , due to the above , improving , blood culture no growth so far , will switch to oral keflex to treat his UTI (3) Fever Assessment & Plan: source suspect UTI and fracture , improved, blood culture is negative so far , continue oral keflex (4) Fracture of greater trochanter of right femur Assessment & Plan: continue pain management and conservative treatment as per ortho Subjective Constitutional: Reports: no symptoms HEENT: Reports: no symptoms Respiratory: Reports: no symptoms Breasts: Reports: no symptoms Cardiovascular: Reports: no symptoms Gastrointestinal/Abdominal: Reports: no symptoms Genitourinary: Reports: no symptoms Neurologic: Reports: no symptoms Psychiatric: Reports: no symptoms Skin: Reports: no symptoms Endocrine: Reports: no symptoms Hematologic: Reports: no symptoms Musculoskeletal: Reports: no symptoms Allergies: Coded Allergies: No Known Allergies (Unverified , 12/31/17) Objective Vital Signs Last 24 Hour Vital Signs Date Time Temp Pulse Resp B/P (MAP) Pulse Ox O2 Delivery O2 Flow Rate FiO2 01/07/18 11:57 98.8 73 18 128/53 (78) 01/07/18 09:25 Room Air 01/07/18 08:08 98.1 69 18 144/70 (94) 95 01/07/18 04:00 98.2 72 20 134/67 (89) 97 01/07/18 00:00 98.6 73 16 114/60 (78) 94 01/06/18 21:00 Room Air 01/06/18 20:00 98.4 80 18 115/57 (76) 94 Height (Feet): 5 Height (Inches): 7.00 Weight (Pounds): 122 General Appearance: WD/WN, no acute distress HEENT: normocephalic, atraumatic, anicteric, mucous membranes moist, PERRL, EOMI, pharynx normal, supple, no JVD Respiratory/Chest: chest wall non-tender, lungs clear, normal breath sounds, no respiratory distress, no accessory muscle use Breasts: no masses Cardiovascular: normal peripheral pulses, normal rate, regular rhythm, no gallop/murmur, no JVD Abdomen: normal bowel sounds, soft, non tender, no organomegaly, non distended , no mass, no scars Genitourinary: normal external genitalia Extremities: no cyanosis, no clubbing Skin: no rash, no lesions, ulcers Neurologic/Psychiatric: alert, oriented x 3, responsive Lymphatic: no neck adenopathy, no groin adenopathy Musculoskeletal: normal muscle bulk, no effusion Laboratory Tests Test 01/07/18 05:40 Sodium Level 141 MMOL/L (136-145) Potassium Level 4.7 MMOL/L (3.5-5.1) Chloride Level 104 MMOL/L (98-107) Carbon Dioxide Level 34 MMOL/L (21-32) H Anion Gap 3 mmol/L (5-15) L Blood Urea Nitrogen 9 mg/dL (7-18) Creatinine 0.7 MG/DL (0.55-1.30) Estimat Glomerular Filtration Rate mL/min (>60) Glucose Level 109 MG/DL (74-106) H Calcium Level 9.7 MG/DL (8.5-10.1) Total Bilirubin 0.5 MG/DL (0.2-1.0) Aspartate Amino Transf (AST/SGOT) 14 U/L (15-37) L Alanine Aminotransferase (ALT/SGPT) 20 U/L (12-78) Alkaline Phosphatase 81 U/L (46-116) Total Protein 6.3 G/DL (6.4-8.2) L Albumin 2.8 G/DL (3.4-5.0) L Globulin 3.5 g/dL Albumin/Globulin Ratio 0.8 (1.0-2.7) L Current Medications Medications (Trade) Dose Ordered Sig/Trisha Route PRN Reason Start Time Stop Time Status Last Admin Dose Admin Acetaminophen (Tylenol) 650 mg Q4H PRN ORAL Mild Pain (Pain Scale 1-3) 01/01/18 00:30 01/31/18 00:29 Cephalexin (Keflex) 500 mg FOUR TIMES A DAY ORAL 01/04/18 18:00 01/11/18 23:59 01/07/18 13:11 Dextrose (Dextrose 50%) 25 ml Q30M PRN IV Hypoglycemia 01/01/18 00:30 01/31/18 00:29 Dextrose (Dextrose 50%) 50 ml Q30M PRN IV Hypoglycemia 01/01/18 00:30 01/31/18 00:29 Dextrose/Sodium Chloride 1,000 ml @ 75 mls/hr [id number] IV 01/01/18 02:00 01/31/18 01:59 01/07/18 04:47 Levetiracetam (Keppra) 250 mg Q12HR ORAL 01/04/18 09:00 01/31/18 08:59 01/07/18 08:56 Magnesium Hydroxide (Mom) 30 ml HSPRN PRN ORAL Constipation 01/01/18 00:30 01/31/18 00:29 01/05/18 16:19 Morphine Sulfate (Morphine Sulfate) 4 mg Q4H PRN IVP Severe Pain (Pain Scale 7-10) 01/01/18 08:00 01/08/18 07:59 01/05/18 16:26 Ondansetron HCl (Zofran) 4 mg Q6H PRN IVP Nausea & Vomiting 01/01/18 00:30 01/31/18 00:29 01/05/18 21:04 Zolpidem Tartrate (Ambien) 5 mg HSPRN PRN ORAL Insomnia 01/01/18 00:30 01/08/18 00:29 Chelsey Drew M.D. Jan 07, 2018 16:51
[2018-01-07] MEDS ORDERED: D5 1/2NS 1000ml IV ONE (17:34)
[2018-01-07 20:00] VITALS: BP 144/76
[2018-01-08] VITALS: BP 141/73
--- NOTE | 2018-01-08 03:45 | Consultation ---
DATE OF CONSULTATION: 01/07/2018 PHYSICAL MEDICINE REHABILITATION CONSULTATION CONSULTING PHYSICIAN: Von Berry M.D. REFERRING PHYSICIAN: Maribell Saldaña M.D. ORTHOPEDIC SURGEON: Georgi David M.D. INFECTIOUS DISEASE: Chelsey Drew M.D. CHIEF COMPLAINT: Functional impairment, cognitive impairment, speech impairment, language impairment, and swallowing impairment in a patient with right proximal femoral fracture and history of brain tumor and craniotomy. HISTORY OF PRESENT ILLNESS: The patient is a 72-year-old white male, who was brought to the emergency room at [facility] via paramedics status post fall from bed. The patient apparently has been having right hip pain. The patient was admitted to the hospital, underwent further workup. CT scan of the pelvis showed acute nondisplaced fracture of the proximal femur at the right greater trochanteric area. Also report of fecal impaction and bladder stone per radiologist. The patient had x-ray of the knee reported negative. CT scan of the head reported by radiologist with involvement of cerebral white matter bilaterally, possible vasogenic edema or recurrent residual tumor or cerebritis. The patient's chest x-ray reported mild left basal ganglia atelectasis. He had a cervical spine x-ray, which reported no definite acute bony trauma. The patient had leukocytosis of over 11,000, was seen by Infectious Disease, and started on antibiotics. The patient had fever of over 101 on 01/01/2018. The patient diagnosed by Infectious Disease with UTI and sepsis and fever. The patient was seen by orthopedic surgeon, Dr. Georgi David, who recommended no operation and recommended weightbearing as tolerated and rehabilitation for this patient. I was asked today to evaluate the patient for rehabilitation. The patient has severe cognitive, memory, speech, language, and swallowing impairments on the top of right-sided hemiplegia and right-side eye blindness. Unable to provide much information. I tried multiple times to contact the patient's , Michelle, at phone number #[phone]; however, there is no answering machine and phone has not been answered. Also, staff here at the nursing station have been trying to reach the over the past hour, but there is no answer from her as well. PAST MEDICAL AND SURGICAL HISTORY: 1. History of seizure disorder, on antiseizure medication. 2. History of brain cancer and surgery. 3. History of right eye blindness. 4. Right hemiplegia. ALLERGIES: Not known drug allergy. MEDICATIONS: Keflex 500 mg 4 times a day, Keppra 250 b.i.d., morphine p.r.n., Tylenol p.r.n., milk of magnesia p.r.n., Zofran p.r.n., Ambien p.r.n., and D50 p.r.n. FAMILY AND SOCIAL HISTORY: Minimal information is available. Apparently the patient lives at home with his . His prior level of function is not clear. No reported history of tobacco, alcohol, or illicit drugs. Currently requires maximum assistance to total assistance level for rolling at bed, supine to sit. Unable to sit to stand. Unable for bed to chair transfer. Family history is not clear. Home situation is not clear. REVIEW OF SYSTEMS: Not obtainable. PHYSICAL EXAMINATION: VITAL SIGNS: Blood pressure 140/79, respiratory rate 19 per minute, heart rate 86 per minute, temperature 98 degrees Fahrenheit, and O2 saturation 95%. Height 170 cm and weight 55 kg. Body mass index 19. GENERAL: The patient with right hemiplegia and right eye blindness at bed. HEENT: Facial asymmetry and right eye blindness. NECK: Supple. PULSES: Bilateral carotid, femoral, and dorsalis pedis palpable. HEART: Regular. LUNGS: Clear to auscultation bilaterally. ABDOMEN: Soft with no distention. EXTREMITIES: No pitting edema. No clubbing or cyanosis. Movement of right lower limb is limited and resisted with pain at the lower limb, most likely at the hip area. NEUROLOGIC: The patient is awake, follows very simple commands. Severely dysarthric and aphasic. Not oriented to place, year, and name of President. However, he was able to recall his name. Movement of left upper limb close to antigravity 3, 3+/5. Left lower limb 2 to 3/5. Right lower limb, no active movement noted. Right upper limb, no active movement noted. LABORATORY DATA: WBC 8.5, hemoglobin 14.2, and platelets 156. Sodium 141, potassium 4.7, . Albumin 2.8. TSH 1.53. Cholesterol 128. ASSESSMENT: The patient is a 72-year-old male with: 1. Status post fall from bed on the floor with right-sided proximal femoral fracture, acute nondisplaced fracture of the right greater trochanter. 2. Limb pain. 3. Multifactorial encephalopathy. 4. UTI. Urine culture positive for Klebsiella pneumoniae. 5. Dysphagia. 6. Aphasia. 7. Dysarthria. 8. Debility and functional decline. 9. Seizure disorder. 10. Right-sided neglect. 11. Right eye blindness enucleated. RECOMMENDATION: This patient will benefit from physical therapy, occupational therapy, speech therapy, and 24 hours nursing care. According to orthopedic surgeon, no surgery indicated for proximal femur fracture and he is weightbearing as tolerated. Physical therapy for range of motion, transfer training, endurance, balance, and gait training, fall prevention with appropriate assistive device. Occupational therapy for activities of daily living, equipment function, transfer evaluation and training, upper extremity range of motion and strengthening exercise. Speech therapy for evaluation and re-training on status of his cognition, memory, speech, language, and swallow evaluation and re-training aspiration precaution. Nursing for evaluation of his bowel and bladder, medication regimen, skin care prevention of pressure ulcers, and the patient and family education. Whether this patient is qualified for acute inpatient or not depends on his prior level of function. We need to discuss this with . I discussed with the staff for pillowcase cutter to try to get in touch with the who apparently is not answering at this time, and based on level of function prior to this incident, if the patient was able to perform any activity including transfer or even gait, the patient may benefit from a course of acute inpatient rehabilitation. However, if the patient was bedbound, this patient does not qualify for acute inpatient rehabilitation placement. Continue medical management per Medicine. nursing home manager to follow with the . Thank you for your consultation. Von Berry M.D. DR: JUDITH JOB#: [id number] CC:
[2018-01-08 04:00] VITALS: BP 145/75
[2018-01-08] MEDS: D5 1/2NS 1,000 ML IV SCH (05:05)
[2018-01-08 08:12] VITALS: BP 133/68
[2018-01-08] MEDS: Cephalexin 500mg cap ORAL SCH ×2 (09:59→14:11)
--- NOTE | 2018-01-08 14:27 | Infectious Diseases Prog Note ---
Assessment/Plan Problems: (1) UTI (urinary tract infection) Assessment & Plan: due to klebsiella pneumonia , continue oral keflex for 7 days total . EOT 01/11/18 (2) Sepsis Assessment & Plan: with fever and leukocytosis , due to the above , improving , blood culture no growth so far , will switch to oral keflex to treat his UTI (3) Fever Assessment & Plan: source suspect UTI and fracture , improved, blood culture is negative so far , continue oral keflex (4) Fracture of greater trochanter of right femur Assessment & Plan: continue pain management and conservative treatment as per ortho Subjective Constitutional: Reports: no symptoms HEENT: Reports: no symptoms Respiratory: Reports: no symptoms Breasts: Reports: no symptoms Cardiovascular: Reports: no symptoms Gastrointestinal/Abdominal: Reports: no symptoms Genitourinary: Reports: no symptoms Neurologic: Reports: no symptoms Psychiatric: Reports: no symptoms Skin: Reports: no symptoms Endocrine: Reports: no symptoms Hematologic: Reports: no symptoms Musculoskeletal: Reports: no symptoms Allergies: Coded Allergies: No Known Allergies (Unverified , 12/31/17) Objective Vital Signs Last 24 Hour Vital Signs Date Time Temp Pulse Resp B/P (MAP) Pulse Ox O2 Delivery O2 Flow Rate FiO2 01/08/18 09:00 Room Air 01/08/18 08:12 98.2 69 17 133/68 (89) 95 01/08/18 04:00 97.4 79 19 145/75 (98) 98 01/08/18 00:00 98.1 75 18 141/73 (95) 98 01/07/18 21:00 Room Air 01/07/18 20:00 98.7 81 18 144/76 (98) 97 01/07/18 16:00 98.8 86 19 141/79 (99) 95 Height (Feet): 5 Height (Inches): 7.00 Weight (Pounds): 122 General Appearance: WD/WN, no acute distress HEENT: normocephalic, atraumatic, anicteric, mucous membranes moist Respiratory/Chest: chest wall non-tender, lungs clear, normal breath sounds, no respiratory distress, no accessory muscle use Cardiovascular: normal peripheral pulses, normal rate, regular rhythm, no gallop/murmur, no JVD Abdomen: normal bowel sounds, soft, non tender, no organomegaly, non distended , no mass, no scars Extremities: no cyanosis, no clubbing Skin: no rash, no lesions Neurologic/Psychiatric: alert, oriented x 3, responsive Lymphatic: no neck adenopathy, no groin adenopathy Musculoskeletal: normal muscle bulk, no effusion Current Medications Medications (Trade) Dose Ordered Sig/Trisha Route PRN Reason Start Time Stop Time Status Last Admin Dose Admin Acetaminophen (Tylenol) 650 mg Q4H PRN ORAL Mild Pain (Pain Scale 1-3) 01/01/18 00:30 01/31/18 00:29 Cephalexin (Keflex) 500 mg FOUR TIMES A DAY ORAL 01/04/18 18:00 01/11/18 23:59 01/08/18 14:11 Dextrose (Dextrose 50%) 25 ml Q30M PRN IV Hypoglycemia 01/01/18 00:30 01/31/18 00:29 Dextrose (Dextrose 50%) 50 ml Q30M PRN IV Hypoglycemia 01/01/18 00:30 01/31/18 00:29 Dextrose/Sodium Chloride 1,000 ml @ 75 mls/hr [id number] IV 01/01/18 02:00 01/31/18 01:59 01/08/18 05:05 Levetiracetam (Keppra) 250 mg Q12HR ORAL 01/04/18 09:00 01/31/18 08:59 01/08/18 09:59 Magnesium Hydroxide (Mom) 30 ml HSPRN PRN ORAL Constipation 01/01/18 00:30 01/31/18 00:29 01/05/18 16:19 Ondansetron HCl (Zofran) 4 mg Q6H PRN IVP Nausea & Vomiting 01/01/18 00:30 01/31/18 00:29 01/05/18 21:04 Cehlsey Drew M.D. Jan 08, 2018 14:27
--- NOTE | 2018-01-09 11:07 | Discharge Summary ---
Discharge Summary Discharge Summary _ DATE OF ADMISSION: 12/31/2017 DATE OF DISCHARGE:01/08/2018 REASON FOR ADMISSION: 72 years old male with past medical history of brain tumor, seizure disorder, dementia, brought by paramedics status post fall from bed . Patient was pointed to his leg. Patient was unable to characterize the pain. Upon evaluation patient was found to be febrile, with leukocytosis. Urinalysis with evidence of UTI. CT of the pelvis revealed acute nondisplaced fracture of the right greater trochanter. X-ray of the right knee revealed no acute findings.. UA with evidence of UTI. CT of the head revealed no acute hemorrhage. Diffuse abnormal low attenuation involving cerebral white matter bilaterally , acuity undetermined . Could be on the basis of recurrent or residual tumor .Left craniotomy noted. Patient admitted with diagnoses status post fall from bed, right greater trochanter fracture nondisplaced; probably sepsis, UTI, history of malignant neoplasm of brain. CONSULTANTS: ID specialist Dr. Drew ortho surgery Dr. David physical medicine rehabilitation attendant Dr. Kim HOSPITAL COURSE: Patient admitted to the floor. Pain management was addressed. Orthopedic surgery consult was requested. Orthopedic surgeon seen and evaluated patient. Patient sustained right sided trochanteric hip fracture with no displacement. Per surgeon , no surgical intervention was recommended. Abduction precautions implemented ( as noted by surgeon, being his only limitation). Surgeon allowed weight bearing as tolerated. Patient started to work with physical and occupational therapist with assistive device as able. Follow up with surgeon as outpatient. Infectious disease specialist followed . Blood culture were negative. Urine culture revealed Klebsiella. Antibiotic provided as per ID specialist recommendations. Patient completed antibiotic treatment. Seizure precautions were maintained. Keppra was continued. DVT and GI prophylaxis provided. Pain management was addressed , and pain was controlled. Bedside swallow evaluation revealed evidence of dysphagia. r Speech therapist recommended video swallow evaluation. Physical medicine rehabilitation attendant seen and evaluated patient and recommended continue physical ,occupational ,speech therapy and 24 hours nursing care. Physical therapy to be continued at the facility for range of motion, transfer training ,endurance balance, and gait training. Maintain fall precautions. Occupational therapy to be continued at the facility for activities of daily living, transfer , evaluation and training of upper extremity range of motion and strengthening exercises. Speech therapy to be continued for cognition, memory, speech, language, and swallow evaluation for retraining with strict aspiration precautions, video swallow as outpatient. Continuous [facility]dc care required for bowel, bladder regimen, follow- up with the medication ,skin care, prevention of pressure ulcers, family and patient education. Transfer was arranged to fdc facility for continuation of care FINAL DIAGNOSES: Status post fall from the bed Right greater trochanteric nondisplaced proximal femur fracture Probable sepsis Urinary tract infection with Klebsiella History of brain neoplasm Encephalopathy, multifactorial Dysphagia Seizure disorder Right-sided blindness with right-sided neglect Functional decline DISCHARGE MEDICATIONS: See Medication Reconciliation list. DISCHARGE INSTRUCTIONS: Patient was discharged to the fdc facility. Follow up with medical doctor at the facility. I have been assigned to dictate discharge summary for this account. I was not involved in the patient's management. Rosanne Cabral NP Jan 09, 2018 11:07
--- NOTE | 2018-01-09 14:30 | Diagnostic Imaging Report ---
Indications: Reason For Exam: DYSPHAGIA Technique: Patient ingested multiple substances under the supervision of speech pathology. Video fluoroscopic recording performed. Total fluoroscopy time 293 seconds. Total dose area product 0.32784 mGycm2 Total number of images-13 Comparison: none Findings: Aspiration of thin liquid barium is demonstrated. With ingestion of nectar thick,, honey thick, masticated solid, no aspiration or penetration. There is some early pooling of honey thick and masticated solid, minimal residual in the vallecula. And barium puree Impression: Positive for aspiration of thin liquid barium Please refer to speech pathology report for more detailed analysis
== END 2018-01-08 15:45 | DRG 871 ==
LOC: EDBD 20:07 → EMR 20:41 → EDBEDREQ 22:22 → 4E 22:44 → EDBEDREQ 23:13 → 4E 01-01 20:26 → SDSOVERFLO 01-08 14:20 → 4E 01-08 14:22
DX: A41.9 Sepsis, unspecified organism (principal); S72.114A Nondisplaced fracture of greater trochanter of right femur, initial encounter for closed fracture; N39.0 Urinary tract infection, site not specified; G93.40 Encephalopathy, unspecified; G81.91 Hemiplegia, unspecified affecting right dominant side; Z68.1 Body mass index [BMI] 19.9 or less, adult; Z85.841 Personal history of malignant neoplasm of brain; W06.XXXA Fall from bed, initial encounter; Y92.003 Bedroom of unspecified non-institutional (private) residence as the place of occurrence of the external cause; B96.1 Klebsiella pneumoniae [K. pneumoniae] as the cause of diseases classified elsewhere; R13.10 Dysphagia, unspecified; G40.909 Epilepsy, unspecified, not intractable, without status epilepticus; H54.61 Unqualified visual loss, right eye, normal vision left eye; F03.90 Unspecified dementia, unspecified severity, without behavioral disturbance, psychotic disturbance, mood disturbance, and anxiety; Z98.890 Other specified postprocedural states; R47.1 Dysarthria and anarthria; R53.81 Other malaise
CPT/HCPCS: 36415; 70450; 71045; 72040; 72192; 74230; 80053; 80061; 80299; 81003; 83036; 83735; 83880; 84443; 85025; 85610; 85730; 86850; 86900; 86901; 87040; 87086; 87181; 94664; 96374; 99285; J2405